=== PATIENT | female | born 1960 | race Caucasian/White ===

== ENCOUNTER 2018-05-20 11:17 | Outpatient (CLI) | payer OTHER, SELFPAY ==
[2018-05-20 12:43] LABS: HCT 40.2 % (36.0-46.0); HGB 13.5 g/dL (12.0-15.5); Mean Corp. HGB Concentration 33.6 g/dL (32.0-36.0); Mean Corpuscular Volume 86.5 fL (80-95); Mean Platelet Volume 10.7 fL (8.0-11.0); Platelet Count 255 x1000/uL (130-400); RBC 4.65 m/cumm (4.00-5.20); RBC Distribution Width 12.7 % (11.7-14.6); White Blood Cell Count 4.09 k/cumm (4.4-10.8)
[2018-05-20 13:39] LABS: ALT 32 U/L (12-78); AST 22 U/L (15-37); Albumin 4.1 g/dL (3.4-5.0); Alkaline Phosphatase 71 U/L (46-116); Anion Gap 5.7 mmol/L (3-11); BUN 13 mg/dL (7-18); Bilirubin, Total 0.3 mg/dL (0.2-1.0); CO2 30.3 mmol/L (21.0-32.0); Calcium 8.9 mg/dL (8.5-10.1); Chloride 106 mmol/L (98-107); Glucose 96 mg/dL (70-100); Potassium 4.3 mmol/L (3.5-5.1); Sodium 142 mmol/L (136-145); TSH (W/Ref FT4) 1.22 uIU/mL (0.358-3.74)
== END 2018-05-20 11:37 ==
LOC: LBO 11:18 → LOS 11:43
PROVIDERS: PCP Family Medicine; Visit Provider Internal Medicine
DX: I10 Essential (primary) hypertension (principal)
CPT/HCPCS: 36415; 80053; 85027; 84443

== ENCOUNTER 2018-10-07 11:14 | Outpatient (CLI) | payer OTHER, SELFPAY ==
--- NOTE | 2018-10-07 11:55 | DI.MAMMO_ITS ---
SYMPTOM/DIAGNOSIS: SCREENING, Z12.31 MAMMOGRAMS: Mammograms were interpreted according to the usual protocol including computer analysis with CAD system, tomosynthesis and C view imaging. No priors for comparison at the time of dictation. Breast density, Category D. No suspicious masses or microcalcifications are seen. There is no definite evidence of malignancy. IMPRESSION: Negative mammogram. Routine screening is recommended. Category 1. MQSA ASSESSMENT OF FINDINGS: Negative. Category 1. Patient will receive a letter notifying them of these results. BI-RADS category D. The breasts are extremely dense, which lowers the sensitivity of mammography.
== END 2018-10-07 11:34 ==
PROVIDERS: PCP Family Medicine; Visit Provider Family Medicine
DX: Z12.31 Encounter for screening mammogram for malignant neoplasm of breast (principal)
CPT/HCPCS: 77063; 77067

== ENCOUNTER 2018-10-07 11:48 | Outpatient (REF) | payer OTHER, SELFPAY ==
--- NOTE | 2018-10-07 09:00 | PAPFT_PTH ---
PATIENT: Bertha Lora V LOC: SD U#:[id number] AGE/SX: 58/F ROOM: RE10/07/[address]: Cathy Anderson MD : [id number] BED: DIS: 10/07/2018 SPEC #: [id number] RECD: 10/07/18 13:02 STATUS: VIRGILIO REIsa #: [id number] JELENA: 10/07/18 09:[address]: Cathy Anderson DEPT: [facility] Cytology RECD BY: Amber Chapman Tissues: 1 - CX/ENDOCX FOR PAP SMEARS Procedures: PAP THIN PREP/UVM Screening HPV DNA PROBE Comments: [id number]
== END 2018-10-07 12:08 ==
LOC: LBN 11:48
PROVIDERS: PCP Family Medicine; Visit Provider Family Medicine
DX: Z12.4 Encounter for screening for malignant neoplasm of cervix (principal); Z11.51 Encounter for screening for human papillomavirus (HPV)
CPT/HCPCS: 88142; 87624

== ENCOUNTER 2019-10-13 10:15 | Outpatient (CLI) | payer OTHER, SELFPAY ==
[2019-10-13 13:06] LABS: ALT 26 U/L (14-59); AST 17 U/L (15-37); Albumin 4.5 g/dL (3.4-5.0); Alkaline Phosphatase 64 U/L (46-116); Anion Gap 7.8 mmol/L (3-11); BUN 18 mg/dL (7-18); Bilirubin, Total 0.5 mg/dL (0.2-1.0); CO2 31.2 mmol/L (21.0-32.0); CREATININE 0.79 mg/dL (0.55-1.02); Calcium 9.3 mg/dL (8.5-10.1); Calculated LDL 128 mg/dL (<100); Chloride 104 mmol/L (98-107); Cholesterol 228 mg/dL (<200); Glucose 90 mg/dL (74-106); HDL Cholesterol 89 mg/dL (40-60); Potassium 4.5 mmol/L (3.5-5.1); Sodium 143 mmol/L (136-145); Total Protein 7.4 g/dL (6.4-8.2); Triglyceride 59 mg/dL (<150)
== END 2019-10-13 10:35 ==
PROVIDERS: PCP Family Medicine; Visit Provider Family Medicine
DX: I10 Essential (primary) hypertension (principal)
CPT/HCPCS: 36415; 80053; 80061

== ENCOUNTER 2020-02-16 00:56 | Outpatient (CLI) | payer OTHER, SELFPAY ==
--- NOTE | 2020-02-16 08:45 | DI.MAMMO_ITS ---
EXAM: MG MAMMO SCREENING CLINICAL HISTORY: screening,z12.39 TECHNIQUE: Bilateral full field digital CC and MLO mammographic images were obtained with 3D tomosyn thesis and utilizing computer aided detection (CAD). COMPARISON: Available for comparison. FINDINGS: Masses/Architectural Distortion: None seen. Microcalcifications: No suspicious pleomorphic-type are seen. Skin Thickening/Nipple Retraction: None. IMPRESSION: 1. No significant interval change with no specific features of malignancy noted. 2. Unless there is more urgent need, screening mammography is recommended, as per [place] [employer] guidelines. BI-RADS Category 1 - Negative Breast Density - Category D - Extremely dense The mammogram demonstrates the patient's breast tissue is dense. Dense breast tissue is very common a nd is not abnormal but dense breast tissue can make it harder to find cancer on a mammogram. Also, de nse breast tissue may increase their breast cancer risk. This information about the result of the [facility] mogram report was provided to the patient to raise their awareness. Use this report when you speak wi th the patient about their risks for breast cancer, which includes their family history. At that time , you may recommend for more screening tests (Ultrasound or MRI) as they might be useful based on the ir risk. A negative radiographic report should not delay biopsy if a dominant or clinically suspicious mass is present. Up to ten percent of cancers are not identified on mammography. A negative report may reinforce clinical impression. Adenosis and dense breasts may obscure an underlying neoplasm. False positive reports average 6 to 10%. Patient will receive a letter notifying them of these results.
== END 2020-02-16 01:16 ==
PROVIDERS: PCP Family Medicine; Visit Provider Family Medicine
DX: Z12.31 Encounter for screening mammogram for malignant neoplasm of breast (principal)
CPT/HCPCS: 77063; 77067

== ENCOUNTER 2020-06-21 19:08 | Outpatient (REF) | payer OTHER, SELFPAY ==
[2020-06-24 21:08] LABS: Patient Race White; SARS-CoV-2 RNA Undetected (Undetected); SARS-CoV-2 Specimen Source Nasal
== END 2020-06-21 19:28 ==
LOC: LBN 19:08
PROVIDERS: PCP Family Medicine; Visit Provider Nurse Practitioner Family
DX: Z11.59 Encounter for screening for other viral diseases (principal)
CPT/HCPCS: U0003

== ENCOUNTER 2021-08-30 02:46 | Outpatient (CLI) | payer MEDICAID, SELFPAY ==
--- NOTE | 2021-08-30 | DI.RAD_ITS ---
Exam(s) XR WRIST LT COMPLETE EXAM: XR WRIST LT COMPLETE CLINICAL HISTORY: TRAUMA LEFT WRIST 08/24, R/O FX. TECHNIQUE: 2D digital imaging was performed. COMPARISON: No exams were available for comparison FINDINGS: No evidence of acute fracture or dislocation. Bone density normal. No osseous lesions. No signific ant ulnar variance. IMPRESSION: No significant radiographic findings. DATA REPOSITORY: RADIATION DOSE DELIVERED:
== END 2021-08-30 03:06 ==
PROVIDERS: PCP Family Medicine; Visit Provider Chiropractor Orthopedic
DX: M25.532 Pain in left wrist (principal); S69.82XA Other specified injuries of left wrist, hand and finger(s), initial encounter; X58.XXXA Exposure to other specified factors, initial encounter
CPT/HCPCS: 73110

== ENCOUNTER 2023-01-14 01:51 | Outpatient (CLI) | payer MEDICAID, SELFPAY ==
--- NOTE | 2023-01-14 07:30 | DI.MAMMO_ITS ---
Exam(s) MAMMO SCREENING EXAM: MAMMO SCREENING CLINICAL HISTORY: screening,z12.39. TECHNIQUE: Bilateral full field digital CC and MLO mammographic images were obtained with 3D tomosyn thesis and utilizing computer aided detection (CAD). COMPARISON: Prior mammograms were reviewed. FINDINGS: There has been no significant change in the appearance and distribution of the fibroglandular tissue which is again noted be very dense. There are no new spiculated masses nor malignant appearing microcalcification groups. Benign microcalcifications are noted in the left breast. There is no significant architectural distortion nor skin thickening-retraction. IMPRESSION: No radiographic evidence of malignancy. BI-RADS Category 2 - Benign Findings Breast Density - Category C - Heterogeneously dense Breast density Category C or D implies that the patient has dense breast tissue. Dense breast tissue can make it harder to find cancer on a mammogram. Dense breast tissue is also associated with an incr eased risk of breast cancer. This information about the result of the mammogram report was provided to the patient to raise their awareness. Use this report when you speak with the patient about their risks for breast cancer, which includes their family history. At that time, you may recommend additional screening tests (Ultrasoun d or MRI) as these tests may add significant information. A negative radiographic report should not delay biopsy if a dominant or clinically suspicious mass is present. Up to ten percent of cancers are not identified on mammography. A negative report may reinforce clinical impression. Adenosis and dense breasts may obscure an underlying neoplasm. False positive reports average 6 to 10%. Patient will receive a letter notifying them of these results.
== END 2023-01-14 02:11 ==
LOC: DI 01:53
PROVIDERS: PCP Nurse Practitioner Family; Visit Provider Nurse Practitioner Family
DX: Z12.31 Encounter for screening mammogram for malignant neoplasm of breast (principal)
CPT/HCPCS: 77063; 77067

== ENCOUNTER 2023-04-26 11:09 | Emergency (ER) | payer MEDICAID, SELFPAY ==
[2023-04-26 11:16] VITALS: BP 151/74; PULSE 87; RESP 18; TEMP 36.4; O2SAT 98
[2023-04-26 11:41] LABS: Bilirubin Negative (Negative); Blood Negative (Negative); Clarity Sl Cloudy (Clear); Glucose Negative (Negative); Ketones Negative (Negative); Leukocyte Esterase Negative (Negative); Nitrite Negative (Negative); Specific Gravity 1.025 (1.005-1.025); Urobilinogen 0.2 mg/dL (Up to 0.2); pH 6.5 (5-8)
[2023-04-26] MEDS: Ketorolac 30 MG/ML VIAL IVP (11:47)
[2023-04-26 11:54] LABS: Abs Immature Grans 0.02 10^3/uL (0.0-0.06); Absolute Basophil Count 0.05 10^3/uL (0.0-0.2); Absolute Eosinophil Count 0.03 10^3/uL (0.0-0.7); Absolute Lymphocyte Count 1.42 10^3/uL (1.2-3.4); Absolute Monocyte Count 0.52 10^3/uL (0.1-0.8); Absolute Neutrophil Count 6.33 10^3/uL (1.2-6.7); Basophils % 0.6; Eosinophils % 0.4; HCT 38.5 % (36.0-46.0); Immature Grans % 0.2; MCH 28.8 pg (27.0-33.0); MCHC 33.8 % (32.0-36.0); MCV 85 fL (80-95); MPV 10.6 fL (8.0-11.0); Monocytes % 6.2; Neutrophils % 75.6; Platelet Count 294 10^3/uL (130-400); RBC 4.51 10^6/uL (3.93-5.22); RDW 12.2 % (11.7-14.6); RDW-SD 37.9 fL; WBC 8.37 10^3/uL (4.4-10.8)
--- NOTE | 2023-04-26 12:01 | ED.GENADUL_ITS ---
Discharge Plan Disposition Patient Disposition: Home Condition: Good Discharge Details Clinical Impression: Acute flank pain Primary Care Provider: Greyson Mccauley ED Provider: Jena Ngo Home Meds and New Rx's Prescriptions: New oxycodone 5 mg tablet 5 mg PO BID PRN (Reason: pain) Qty: 2 0RF Continued loratadine [Claritin] 10 mg tablet 10 mg PO DAILY PRN fluticasone propionate [Flonase Allergy Relief] 50 mcg/actuation spray,suspension 2 spray LANDON DAILY PRN ketotifen fumarate [Zaditor] 0.025 % (0.035 %) drops 1 drp OP BID PRN Patient Comments: PT states no longer taking. ML 04/26/23 lisinopril 10 mg tablet 10 mg PO DAILY Qty: 90 4RF propranolol 10 mg tablet 10 mg PO ONCE PRN (Reason: palpitations) Qty: 25 2RF ondansetron HCl 8 mg tablet 4 - 8 mg PO BID PRN (Reason: nausea and vomiting) Qty: 20 6RF Rx Instructions: take half to one tablet for nausea with migraines twice a day as needed rizatriptan [Maxalt] 10 mg tablet 5 - 10 mg PO .COMPLEX Rx Instructions: take half to 1 tablet at onset of migraine;may repeat 2 hours later if needed. Max.30mg/24hours Discharge Instructions Instructions: Flank Pain (ED) Additional Instructions: Your imaging and labs are reassuring here today. No evidence of acute stone or infection. However, your history and symptoms are quite concerning for a potential stone that you may have already passed. Please continue to encourage hydration. Please discuss with your family to see if they are able to identify type of stone your mother may have suffered from. Knowing this may help you to avoid certain things in your diet to help prevent future stones if this was indeed the case. Please continue to monitor area for rash. If you develop fever/chills, inability stay hydrated or other new/worsening symptom please seek care urgently once again. You may use your previously prescribed Zofran if you have any return of your nausea. You have been prescribed 2 tablets of oxycodone which has been sent to your pharmacy. Please follow-up with primary care in 1 week for reevaluation. Referrals: Greyson Mccauley, KILEY [Primary Care Provider] - Discharge Data Discharge Date/Time-TO BE ENTERED AT DEPARTURE: 04/26/23 14:10 Medical Decision Making Patient is a pleasant 62 year old female, accompanied by her , with c/c of right sided flank pain that began suddenly 4 hours prior to arrival. She has not had pain like this previously. Reports it began and stays in the left flank. When pain peaks, she develops N/V. No change in urinary or bowel habits. Denies hematuria. No fevers/chills. Denies signficant abdominal pain. No vaginal discharge. No hematemesis. Mom has hx of nephrolithiasis, patient has no personal history of this. No recent exposures, travel or change in diet. Denies CP or SOB On exam, patient appears uncomfortable. She is pacing and holding emesis bag and right flank. No active vomiting. Hemodynamically stable. Indicats right CVA as area of pain but none with percussion. Pain appears to come in waves. No abodminal pain, negtaive Watkins's. Normal pulmonar and CV exam. Primarily concerned for nephrolithiasis. Will obtain CT, labs, UA. Will give Toradol for pain. Declined antiemetic. Now requesting antiemetic, will give zofran. Reports pain improving, down to 5- 6/10 No acute abnormality on labs. CT reviewed by radiologist: FINDINGS: Liver: Hepatic cysts, largest measuring 1.8 x 1.4 cm. Gallbladder and bile ducts: Normal. No calcified stones. No ductal dilation. Pancreas: Normal. No ductal dilation. Spleen: Normal. No splenomegaly. Adrenal glands: Normal. No mass. Kidneys and ureters: No obstructive uropathy or renal calculus. Stomach and bowel: Unremarkable. No obstruction. No mucosal thickening. Appendix: No evidence of appendicitis. Intraperitoneal space: Unremarkable. No free air. No significant fluid collection. Vasculature: Unremarkable. No abdominal aortic aneurysm. Lymph nodes: Unremarkable. No enlarged lymph nodes. Urinary bladder: Mild bladder wall thickening. May be nonspecific cystitis. Reproductive: Unremarkable as visualized. Bones/joints: Grade 1 anterolisthesis at L4-L5. Moderate disc space narrowing L5-S1. Soft tissues: Unremarkable. IMPRESSION: 1. ? No obstructive uropathy or renal calculus. 2. ? Mild bladder wall thickening. May be nonspecific cystitis. Discussed with patient. She denies any syptoms associated with cystitis. Pain is more steadily improved at this time. Questioning if she may have passed a stone. She is able to hydrate herself, feels ready for d/c. At this time, I do not see eidence of other acute emergent pathology. Encouraged hydration. Encouraged f/u with PCP. REturn precautions discussed. Given the signficance of her pain, will give 2 oxycodone for acute pain. She will not drink ETOH or drive while taking this medication. All of her questions and concerns were addressed, she is in agreement with this plan. HPI General Date/Time Provider Initiated Documentation: 04/26/23 11:23 . Limitations to Documentation: no limitations . Information obtained by: patient, family () and RN notes reviewed . History of Present Illness 62 year old F presents to the emergency department with the chief complaint of right flank pain, described as severe, with intensity rated at 9. Quality is described as stabbing, and is localized to the back. Patient reports no radiation. Patient started experiencing this hour(s) and it has been constant. No relieving factors improve symptom(s), No exacerbating factors reported . Patient notes nausea/vomiting. Patient did receive the following treatments prior to arrival, none Related Data Home Medications Medication Instructions Recorded Confirmed fluticasone propionate 50 2 spray intranasal DAILY PRN 05/19/18 04/26/23 mcg/actuation nasal spray,suspension (Flonase Allergy Relief) ketotifen fumarate 0.025 % (0.035 1 drp ophthalmic (eye) BID PRN 05/19/18 08/07/22 %) eye drops (Zaditor) loratadine 10 mg tablet (Claritin) 10 mg PO DAILY PRN 05/20/18 04/26/23 propranolol 10 mg tablet 10 mg PO ONCE PRN palpitations #25 12/21/18 04/26/23 tabs ondansetron HCl 8 mg tablet 4 - 8 mg PO BID PRN nausea and 08/22/20 04/26/23 vomiting #20 tabs lisinopril 10 mg tablet 10 mg PO DAILY #90 tabs 08/07/22 04/26/23 oxycodone 5 mg tablet 5 mg PO BID PRN pain #2 tabs 04/26/23 rizatriptan 10 mg tablet (Maxalt) 5 - 10 mg PO .COMPLEX 04/26/23 04/26/23 Previous Rx's Medication Instructions Recorded propranolol 10 mg tablet 10 mg PO ONCE PRN palpitations #25 12/21/18 tabs ondansetron HCl 8 mg tablet 4 - 8 mg PO BID PRN nausea and 08/22/20 vomiting #20 tabs lisinopril 10 mg tablet 10 mg PO DAILY #90 tabs 08/07/22 oxycodone 5 mg tablet 5 mg PO BID PRN pain #2 tabs 04/26/23 Allergies Allergy/AdvReac Type Severity Reaction Status Date / Time Environmental Allergy Mild Uncoded 04/26/23 12:14 General Stated Complaint: FlankPain JAYY: 3 Review of Systems Constitutional Constitutional: Reports as per HPI, Denies chills and Denies fever(s) Cardiovascular Cardiovascular: Denies chest pain Respiratory Respiratory: Denies cough Gastrointestinal Gastrointestinal: Denies abdominal pain and Denies change in bowel habits Genitourinary Genitourinary: Reports as per HPI, Denies hematuria, Denies dysuria, Reports flank pain, Denies urinary incontinence, Denies urinary hesitancy, Denies urinary urgency and Reports vaginal discharge Musculoskeletal Musculoskeletal: Reports as per HPI Integumentary/Breasts Skin/Breast: Reports as per HPI and Denies rash PFSH All Active Problems (Updated 04/26/23 @ 13:59 by SOFIYA Saldaña) Acute flank pain (Acute) Incontinence of urine in female (Acute) Screening mammogram for breast cancer (Acute) Low back pain (Acute) Sensorineural hearing loss, bilateral (Acute 11/11/16) Essential hypertension (Acute) Migraine (Acute 02/08/15) Serrated polyp of colon (Acute) [place]errat[place] [place] - repeat in 3 years Tinnitus, bilateral (Acute 11/11/16) Family History (Updated 06/08/21 @ 10:01 by Annabel Valladares) Mother Essential hypertension Sister Diabetes Essential hypertension Sister Diabetes Essential hypertension Hypothyroidism Sister Diabetes Essential hypertension Hypothyroidism Maternal Grandfather , 80s Prostate cancer Paternal Grandfather , 70s Essential hypertension Alcohol abuse Maternal Grandmother , 80s Asthma Paternal Grandmother Essential hypertension Stroke Sister Hypothyroidism Social History (Updated 08/15/22 @ 07:21 by Myesha Metcalf) Smoking/Tobacco Use Status: Never Second Hand Exposure: Yes Smoking risk assessment performed?: Yes Alcohol Intake: current Alcohol Intake frequency: a few times a week Alcohol type: wine Drug use: Never Substance use type: does not use Caregiver/Support person: Yes Household members: significant other and other Details: 2 Housing: house Communication Needs: None Do you need help understanding health information?: Never current occupation: PEDIATRITIAN Pets and animals: Yes (25 SLED DOGS) Sexually active: No Current gender identity: female What is your relationship status?: living with partner How often do you talk on the phone with friends or family?: three or more times per week How often do you get together with friends or relatives?: twice per week Do you belong to any clubs or organized social groups?: yes Panel score (0-1 are the most socially isolated patients): 3 What type of physical activity do you participate in: bicycling and other Details: skiing Duration: 30-45 minutes/day Frequency: 3-4 times per week Nadia/Sabianist: Adventist Special nadia needs: No Seatbelt use: always Helmet use: Yes Helmet use: always Drive intox or ride w/intox concrete mixing truck driver: No Do you feel safe at home: Yes Do you feel safe in your relationship?: Yes Exam Const General: cooperative, healthy appearing, uncomfortable, no acute distress, well developed and well groomed Nutritional Appearance: average body habitus and well nourished Orientation: alert and awake Resp Effort & Inspection: normal respiratory effort and no respiratory distress Auscultation: clear to auscultation bilaterally, no rales, no rhonchi and no wheezes Cardio Rate: regular rate Rhythm: regular rhythm Heart Sounds: S1 normal and S2 normal GI Inspection: normal to inspection Palpation: soft, no hepatosplenomegaly, not firm, no guarding, not rigid and nontender Back/Spine/Pelvis Back: no CVA tenderness (R CVA area is the point of pain per patient but none with percussion) Skin General skin exam: no rashes or lesions noted Trauma: no lacerations or abrasions Neuro General: patient alert and patient awake Cognition: normal cognition Speech: speech normal Gait: normal gait Psych Appearance: grossly normal and well kempt Mental Status: mental status grossly normal Speech and Movement: speech and movement normal Course Vital Signs Vital signs: Vital Signs Temperature 36.4 C 04/26/23 11:16 Pulse 87 04/26/23 11:16 Respiratory Rate 18 04/26/23 11:16 Blood Pressure 151/74 H 04/26/23 11:16 Pulse Oximetry 98 04/26/23 11:16 Temperature 36.4 C 04/26/23 11:16 Temperature Source Oral 04/26/23 11:16 Pulse 87 04/26/23 11:16 Respiratory Rate 18 04/26/23 11:16 Respiratory Effort Normal, Non-Labored 04/26/23 11:51 Blood Pressure 151/74 H 04/26/23 11:16 Blood Pressure Position Sitting 04/26/23 11:16 Pulse Oximetry 98 04/26/23 11:16 Pain Level 9 04/26/23 11:51 Lab/Test Results Lab/Test Results: Laboratory Tests Range/Units 04/26/23 04/26/23 11:35 11:46 WBC (4.4-10.8) 10^3/uL 8.37 RBC (3.93-5.22) 10^6/uL 4.51 Hgb (11.2-15.7) g/dL 13.0 Hct (36.0-46.0) % 38.5 MCV (80-95) fL 85 MCH (27.0-33.0) pg 28.8 MCHC (32.0-36.0) % 33.8 RDW (11.7-14.6) % 12.2 Plt Count (130-400) 10^3/uL 294 MPV (8.0-11.0) fL 10.6 Immature Gran % 0.2 Neutrophils % 75.6 Lymphocytes % 17.0 Monocytes % 6.2 Eosinophils % 0.4 Basophils % 0.6 Nucleated RBC % (0.0-0.3) % 0.0 Absolute Neutrophils (1.2-6.7) 10^3/uL 6.33 Absolute Lymphocytes (1.2-3.4) 10^3/uL 1.42 Absolute Monocytes (0.1-0.8) 10^3/uL 0.52 Absolute Eosinophils (0.0-0.7) 10^3/uL 0.03 Absolute Basophils (0.0-0.2) 10^3/uL 0.05 Urine Color (Yellow) Yellow Urine Clarity (Clear) Sl Cloudy Urine pH (5-8) 6.5 Ur Specific [place] (1.005-1.025) 1.025 Urine Protein (Negative) mg/dL Negative Urine Ketones (Negative) mg/dL Negative Urine Blood (Negative) Negative Urine Nitrite (Negative) Negative Urine Bilirubin (Negative) Negative Urine Urobilinogen (Up to 0.2) mg/dL 0.2 Ur Leukocyte Esterase (Negative) Negative Urine Glucose (Negative) mg/dL Negative PAWSS Have you Been Recently Intoxicated or Drunk Within the Last 30 days?: No Have you Ever Experienced Previous Episodes of Alcohol Withdrawal?: No Have you ever Experienced Withdrawal Seizures?: No Have you ever Experienced Delirium Tremens(DT)s?: No Have you ever undergone Alcohol Rehabilitation Treatment (i.e, inpt ot outpatient treatment programs)?: No Have you ever Experienced Blackouts?: No Have you ever Combined Alcohol with other Downers within the last 90 days?: No Have you ever Combined Alcohol with any other Substance of Abuse during the last 90 days?: No Positive Blood Alcohol level on Presentation? [PCS.BAL]: No Evidence of Increased Autonomic Activity (i.e. HR>120, tremor, sweating, agitation, nausea)?: No Result: 0
[2023-04-26] MEDS: Ondansetron 4 MG/2 ML VIAL IVP (12:19)
[2023-04-26 12:50] LABS: ALT 26 U/L (14-59); AST 17 U/L (15-37); Albumin 4.1 g/dL (3.4-5.0); Alkaline Phosphatase 65 U/L (46-116); Anion Gap 8.3 mmol/L (3-11); BUN 15 mg/dL (7-18); Bilirubin, Total 0.4 mg/dL (0.2-1.0); CO2 26.7 mmol/L (21.0-32.0); CREATININE 0.9 mg/dL (0.55-1.02); Calcium 8.8 mg/dL (8.5-10.1); Chloride 97 mmol/L (98-107); Estimated GFR 71.39 (mL/min/1.73m2); Glucose 126 mg/dL (74-106); Potassium 3.8 mmol/L (3.5-5.1); Sodium 132 mmol/L (136-145); Total Protein 6.8 g/dL (6.4-8.2)
--- NOTE | 2023-04-26 13:00 | DI.CT_ITS ---
Exam(s) CT RENAL COLIC WO EXAM: CT RENAL COLIC WO CLINICAL HISTORY: right flank pain. TECHNIQUE: Imaging Protocol: Axial computed tomography images with coronal and sagittal reformatted images were created and reviewed CONTRAST MATERIAL: Intravenous: none Oral: None COMPARISON: No exams were available for comparison FINDINGS: VISUALIZED LUNG BASES: No nodules nor pleural effusions evident. ABDOMEN: There is no ascites. LIVER: There are 2 cysts in the right hepatic lobe. The larger measures 2 by 1.6 cm. The smaller me asures 0.8 x 0.8 cm. GALLBLADDER/BILIARY: No obvious gallbladder pathology. CBD is not dilated. PANCREAS: No evidence of pancreatic mass nor dilatation of the pancreatic duct. SPLEEN: Spleen is not enlarged. No obvious intrasplenic lesions. ADRENALS: There are no significant adrenal masses. KIDNEYS:No cysts evident. No solid renal masses. No calculi nor hydronephrosis. . ABDOMINAL AORTA: Abdominal aorta is not enlarged. LYMPH NODES: There is no retroperitoneal nor paraaortic adenopathy. ABDOMINAL WALL: Small right para umbilical hernia. No bowel loops therein. No bowel obstruction. GI: There is no evidence of bowel obstruction, free air, nor abscess. PELVIS: LYMPH NODES: There is no intrapelvic nor inguinal adenopathy. GI: No evidence of appendicitis.No evidence of sigmoid diverticulitis. URINARY BLADDER: Wall of the urinary bladder is diffusely thickened probably related to cystitis. No radiopaque calculi within the bladder lumen. No calculi seen at the ureterovesical junctions. REPRODUCTIVE: Unremarkable OSSEOUS: No significant osseous lesions. Multilevel degenerative disc disease. 1 cm degenerative anterolisthesis L4 upon L5 related to facet arthropathy. IMPRESSION: 1. There is relatively uniform thickening of the urinary bladder wall which is probably related to ch ronic cystitis. There is no gas in the urinary bladder wall. Urinary bladder is not distended and t here are no radiopaque calculi therein. No obvious bladder wall masses. 2. No radiopaque urinary tract calculi evident and no hydronephrosis nor hydroureter. RADIATION DOSE DELIVERED: 552.05mGy.cm Total DLP DATA REPOSITORY: All CT scans at this facility are submitted to the National Radiology Data Registry (NRDR) Dose Index Registry (DIR) with the [employer] (ACR). RADIATION OPTIMIZATION: All CT scans at this facility use at least one of these dose optimization te chniques: automated exposure control; mA and/or kV adjustment per patient size (includes targeted exa ms where dose is matched to clinical indication); or iterative reconstruction.
--- NOTE | 2023-04-26 13:37 | DI.VRAD_ITS ---
PROCEDURE INFORMATION: Exam: CT Abdomen And Pelvis Without Contrast Exam date and time: 04/26/2023 12:40 PM Age: 62 years old Clinical indication: Abdominal pain; Patient HX: No gross hematuria, no HX of kidney stones, right flank pain TECHNIQUE: Imaging protocol: Computed tomography of the abdomen and pelvis without contrast. Radiation optimization: All CT scans at this facility use at least one of these dose optimization techniques: automated exposure control; mA and/or kV adjustment per patient size (includes targeted exams where dose is matched to clinical indication); or iterative reconstruction. COMPARISON: No relevant prior studies available. FINDINGS: Liver: Hepatic cysts, largest measuring 1.8 x 1.4 cm. Gallbladder and bile ducts: Normal. No calcified stones. No ductal dilation. Pancreas: Normal. No ductal dilation. Spleen: Normal. No splenomegaly. Adrenal glands: Normal. No mass. Kidneys and ureters: No obstructive uropathy or renal calculus. Stomach and bowel: Unremarkable. No obstruction. No mucosal thickening. Appendix: No evidence of appendicitis. Intraperitoneal space: Unremarkable. No free air. No significant fluid collection. Vasculature: Unremarkable. No abdominal aortic aneurysm. Lymph nodes: Unremarkable. No enlarged lymph nodes. Urinary bladder: Mild bladder wall thickening. May be nonspecific cystitis. Reproductive: Unremarkable as visualized. Bones/joints: Grade 1 anterolisthesis at L4-L5. Moderate disc space narrowing L5-S1. Soft tissues: Unremarkable. IMPRESSION: 1. No obstructive uropathy or renal calculus. 2. Mild bladder wall thickening. May be nonspecific cystitis. Dictated and Authenticated by: Carine Posada MD. Ordering:KEV Bella MD
[2023-04-26 14:03] VITALS: BP 146/82; PULSE 62; RESP 13; TEMP 36.8; O2SAT 100
== END 2023-04-26 14:10 | disposition home or self-care (01) ==
PROVIDERS: Emergency Provider Physician Assistant; PCP Nurse Practitioner Family
DX: R10.9 Unspecified abdominal pain (principal); R11.0 Nausea; K76.89 Other specified diseases of liver; I10 Essential (primary) hypertension
CPT/HCPCS: 80053; 96374; 96375; 99284; 74176; 81003; 85025; 99283; J1885; J2405

== ENCOUNTER → 2023-12-25 04:10 | Outpatient (CLI) | payer MEDICARE, BC, SELFPAY ==
--- NOTE | 2023-12-25 07:30 | DI.DEXA_ITS ---
Exam(s) XR DEXA BONE DENSITY W/WO JUSTUS EXAM: XR DEXA BONE DENSITY W/WO JUSTUS CLINICAL HISTORY: screening for osteoporosis in postmenopausal woman,z78.0 TECHNIQUE: COMPARISON: CR CHEST 2 VIEWS PA,LAT from 04/06/2015 FINDINGS: Lateral Spine Image: There is grade 1 anterolisthesis of L4 on L5. There is mild unchanged anterior wedging of T11. Left hip: Total T-Score: -1.3 Total Z-Score: -0.1 T- and Z-scores: Findings are consistent with osteopenia. Lumbar Spine: Total T-Score: -0.6 Total Z-Score: 1.2 T- and Z-scores: Within normal limits. IMPRESSION: No evidence of osteoporosis.
== END ==
PROVIDERS: PCP Nurse Practitioner Family; Visit Provider Nurse Practitioner Family
DX: Z78.0 Asymptomatic menopausal state (principal); H90.3 Sensorineural hearing loss, bilateral
CPT/HCPCS: 77080

== ENCOUNTER 2024-12-17 00:16 | Outpatient (CLI) | payer MEDICARE, BC, SELFPAY ==
--- NOTE | 2024-12-17 07:30 | DI.MAMMO_ITS ---
Exam(s) MAMMO SCREENING EXAM: MAMMO SCREENING CLINICAL HISTORY: screening, Z12.39 TECHNIQUE: Mammograms were interpreted according to the usual protocol including computer analysis w [employer] CAD system, tomosynthesis and C-view imaging. COMPARISON: 2018 through 2022 FINDINGS: The breasts are composed of heterogeneously dense fibroglandular densities, Breast Density category C . No suspicious masses or suspicious microcalcifications are seen. No skin thickening or abnormal axillary lymph nodes are seen. There has been no significant change from prior exams. IMPRESSION: BI-RADS Category 1, Negative mammogram. Yearly screening mammography is recommended. Breast Density Category C, heterogeneously Dense. The mammogram demonstrates the patient's breast tissue is dense. Dense breast tissue is very common a nd is not abnormal but dense breast tissue can make it harder to find cancer on a mammogram. Also, de nse breast tissue may increase breast cancer risk. This information about the result of the mammogram report was provided to the patient to raise their awareness. Use this report when you speak with the patient about their risks for breast cancer, which includes their family history. At that time, you may recommend additional screening tests (Ultrasound or MRI) as they might be useful based on their r isk. A negative radiographic report should not delay biopsy if a dominant or clinically suspicious mass is present. Up to ten percent of cancers are not identified on mammography. A negative report may reinforce clinical impression. Adenosis and dense breasts may obscure an underlying neoplasm. False positive reports average 6 to 10%.
== END 2024-12-17 00:36 ==
LOC: DI 00:16
PROVIDERS: PCP Nurse Practitioner Family; Visit Provider Nurse Practitioner Family
DX: Z12.31 Encounter for screening mammogram for malignant neoplasm of breast (principal); R92.333 Mammographic heterogeneous density, bilateral breasts
CPT/HCPCS: 77063; 77067

== ENCOUNTER 2025-01-06 03:35 | Outpatient (CLI) | payer MEDICARE, BC, SELFPAY ==
[2025-01-06 08:28] LABS: ALT 26 U/L (14-59); AST 18 U/L (15-37); Albumin 4.4 g/dL (3.4-5.0); Alkaline Phosphatase 76 U/L (46-116); Anion Gap 6.1 mmol/L (3-11); BUN 15 mg/dL (7-18); Bilirubin, Total 0.5 mg/dL (0.2-1.0); CO2 31.9 mmol/L (21.0-32.0); CREATININE 0.8 mg/dL (0.55-1.02); Calcium 9.4 mg/dL (8.5-10.1); Chloride 103 mmol/L (98-107); Estimated GFR 81.21 (mL/min/1.73m2); Glucose 94 mg/dL (74-106); Sodium 141 mmol/L (136-145); Total Protein 7.8 g/dL (6.4-8.2)
[2025-01-10 17:39] LABS: Apolipoprotein B, Serum 93 mg/dL (48-124); Beta VLDL Cholesterol Not Detected mg/dL (<15); Beta VLDL Triglycerides Not Detected mg/dL (<15); Cholesterol, Total, CDC 230 mg/dL; Chylomicron Cholesterol Not Detected; Chylomicron Triglycerides Not Detected; HDL Cholesterol, CDC 80 mg/dL (>=50); LDL Cholesterol 133 mg/dL; LDL Triglycerides 30 mg/dL (<=50); Lp(a) Cholesterol <5 mg/dL (<5); LpX Not detected; Triglycerides, CDC 68 mg/dL; VLDL Cholesterol 17 mg/dL (<30); VLDL Triglycerides 21 mg/dL (<120)
== END 2025-01-06 03:36 | disposition home or self-care (01) ==
LOC: LBO 03:36
PROVIDERS: PCP Nurse Practitioner Family; Visit Provider Nurse Practitioner Family
DX: E78.5 Hyperlipidemia, unspecified (principal)
CPT/HCPCS: 36415; 80053; 80061; 82172; 82664